=== PATIENT | female | born 1990 | race Caucasian/White ===

== ENCOUNTER 2016-09-24 11:03 | Emergency (ER) | payer OTHER ==
[~2016-09-24] VITALS: Wt 110.0 kg
[~2016-09-24 11:03] MED LIST: FERR28TA PO; PREN1TAB49 PO
[2016-09-24] MEDS ORDERED: HYDR-906 PO (13:30)
[2016-09-24] MEDS ORDERED: PEN500 PO (13:30)
--- NOTE | 2016-09-24 14:28 | ERD ---
ER Documentation Chief Complaint Date/Time DATE: 09/24/16 TIME: 14:11 Chief Complaint DENTAL PAIN FOR THE PAST FEW DAYS. NEEDS PAIN MEDS. HPI The patient is a 26-year-old female with no significant past medical or surgical history here with left lower sided dental pain for approximately 2 years intermittently, worse since she believes part of her tooth cracked and fell out 2 days ago. She reports mild swelling to the right side of her jaw. Denies purulent drainage, fever, chills, nausea, vomiting, diarrhea, or any flulike symptoms. She states that she has a dentist. She states that she did not follow-up with her dentist because she didn't think that this was a very serious problem since her dental pain has always resolve spontaneously. She is requesting pain medication. ROS All systems reviewed and are negative except as per history of present illness. Medications Home Meds Active Scripts Hydrocodone/Acetaminophen ([place] 5-325 Tablet) 1 Each Tablet, 1 EACH PO Q6 for 1 Day, #3 TAB Prov:SURAJ LIRA NP 09/24/16 Penicillin V Potassium* (Penicillin V K*) 500 Mg Tab, 500 MG PO QID for 7 Days, TAB Prov:SURAJ LIRA NP 09/24/16 Reported Medications Ferrous Sulfate (Ferrous Sulfate) 1 Tab Tablet, 1 TAB PO DAILY for 1 Day 09/02/11 Vits W-Ca,Fe,Fa(<1MG) () 1 Tab Tablet, 1 TAB PO DAILY 03/29/11 Allergies Allergies: Coded Allergies: No Known Allergies (Verified Allergy, Mild, 03/29/11) PMhx/Soc Medical and Surgical Hx: pt denies Medical Hx, pt denies Surgical Hx History of Surgery: No Anesthesia Reaction: No Hx Neurological Disorder: No Hx Respiratory Disorders: No Hx Cardiac Disorders: No Hx Psychiatric Problems: No Hx Miscellaneous Medical Probl: No Hx Alcohol Use: No Hx Substance Use: No Hx Tobacco Use: No Physical Exam Vitals Vital Signs Date Time Temp Pulse Resp B/P Pulse Ox O2 Delivery O2 Flow Rate FiO2 09/24/16 11:05 98.8 82 20 139/81 98 Physical Exam INITIAL VITAL SIGNS: Reviewed by me, afebrile, no tachycardia GENERAL: Alert. Well developed and well nourished. No respiratory distress. No acute distress. Nontoxic appearing. HEAD: Head is normocephalic. Atraumatic. EYES: EOMI. No scleral icterus. No conjunctival injection. ENT: External ears, nose, and mouth normal. Slight increased warmth and trace swelling to the right lower jaw. + Tooth number 28 broken in half. Partial filling appreciated. This tooth is tender to tapping. No obvious abscess or purulent drainage, bleeding, erythema, or swelling inside the mouth. No other teeth tender to tapping. Multiple other teeth with fillings appreciated. No other broken teeth. Nasal passages patent. Moist mucous membranes. NECK: Supple. Full range of motion. Trachea midline. RESPIRATORY: No tachypnea. Clear to auscultation bilaterally. No wheezing, rales , or rhonchi. CV: Regular rate and rhythm. No murmurs, rubs, or gallops ABDOMEN: Soft, non-distended, non-tender. No guarding. No rebound. No masses. Bowel sounds normal in all quadrants. BACK: No CVA tenderness. Full ROM. EXTREMITIES: No obvious deformity. No clubbing or cyanosis. No edema. SKIN: Warm and dry. No diaphoresis. No obvious rashes or lesions. NEUROLOGIC: Alert and oriented x 3. Appropriate. Face is symmetric. Speech is normal. Moves all extremities equally. Procedures/MDM Nursing Notes Reviewed Previous Medical Records requested via [employer]. EMERGENCY DEPARTMENT COURSE / MEDICAL DECISION MAKING: The patient comes to the ED secondary to dental pain for the last 2 years, worse over the last 2 days when part of her tooth broke and fell out. Differential diagnosis upon initial evaluation includes but is not limited to: Dental abscess, dental caries, broken tooth, sepsis, osteomyelitis, and others. Given that the patient has significant dental pain in her broken tooth, I will treated empirically for dental abscess with outpatient antibiotics, pain medication, and close dental follow-up within the next 1-2 days. I will also give her very strict return precautions for signs of worsening infection. Final impression: Dental abscess Based on patient's history of present illness and physical examination the decision was made to discharge. There is no evidence of life threatening injuries or illnesses at this time. On re-examination, patient resting in no distress, stable vital signs, reports feeling better and safe for discharge with outpatient follow up with her dentist today or tomorrow. Patient given return precautions. She verbalized understanding and agreed to return precautions. She will return here immediately for any new or worsening symptoms. She states that she will follow- up with her dentist today. Discussed with her at length the importance of prompt dental follow-up and the seriousness of dental infections. I instructed her that dental infections can spread to the blood or surrounding bone, and can in fact be life-threatening. She verbalized understanding and agreed. She assured me that she would follow-up with her dentist today. Prescriptions Pen-V K [place] (3 tabs) Departure Diagnosis: Primary Impression: Dental infection Condition: Stable Patient Instructions: Dental Pain, Dental Cavity, Tooth Abscess Referrals: your dentist Additional Instructions: Please follow up with your dentist TODAY for an appointment within the next 1-2 days. Return here for new or worsening symptoms. Monitor for worsening signs of infection including fever, chills, nausea, vomiting, body aches, pus for the tooth, or body aches. Return here immediately should you experience any signs of worsening infection. SURAJ LIRA NP Sep 24, 2016 14:22
== END 2016-09-24 13:45 | disposition home or self-care (01) ==
LOC: FTE 11:03
DX: K04.7 Periapical abscess without sinus (principal)
CPT/HCPCS: 99284